=== PATIENT | male | born 1985 | race Caucasian/White ===

== ENCOUNTER 2016-06-10 12:23 | Emergency (ER) ==
[2016-06-10 12:38] VITALS: BP 162/100
--- NOTE | 2016-06-10 14:01 | PROVIDER DOCUMENTATION ---
HPI-Musculoskeletal Pain/Inj - GENERAL Source: patient - HX OF PRESENT ILLNESS-MUSKULOSKELTAL Quality of Pain: reports: aching Severity in ED: mild Onset/Duration: 3 days ago Timing: still present Any recent injury?: No Locality of Occurance: Home Similar Symptoms Previously?: Yes Recently seen or treated by another doctor?: No - TRUNK INJURY Location of Injury(s)/Pain: reports: ribs (R) Context / Method of Injury: reports: none Associated Symptoms: reports: pain with breathing. denies: anxiety, arm pain, back/neck pain, chest pain, nausea/vomiting, shortness of breath, sensory/motor loss <Tamanna Rahman - Last Filed: 06/10/16 16:22> <Sharif Sandoval - Last Filed: 06/10/16 16:27> - GENERAL Chief Complaint: Rib Pain Stated Complaint: RIB PAIN Time Seen by Provider: 06/10/16 13:54 - HX OF PRESENT ILLNESS-MUSKULOSKELTAL Nature of Presenting Problem: Pt is 31 y/o M presents to the ED with R side rib pain. Pt states pain started Monday. Pt denies N/V/D. Pt states coughed a lot prior to pain starting. Pt states hurts to breathe. (Tamanna Rahman) Review of Systems - Adult - REVIEW OF SYSTEMS - ADULT Constitutional: reports: no symptoms reported Eyes: reports: no symptoms reported Ears, Nose, Mouth & Throat: reports: no symptoms reported Cardiovascular: reports: no symptoms reported Respiratory: reports: no symptoms reported Gastrointestinal: reports: no symptoms reported Genitourinary: reports: no symptoms reported Musculoskeletal: reports: other (R side rib pain). denies: bone pain, joint pain, neck pain Integumentary: reports: no symptoms reported Neurological: reports: no symptoms reported Psychiatric: reports: no symptoms reported Endocrine: reports: no symptoms reported Hematologic/Lymphatic: reports: no symptoms reported Allergic/Immunologic: reports: no symptoms reported All Other Systems: Reviewed and Negative <Tamanna Rahman - Last Filed: 06/10/16 16:22> Past History - Adult - PAST MEDICAL HISTORY-ADULT Review of Records: reports: Nursing Assessment Review, Medications Reviewed, Social history reviewed & non-contributory. Major Childhood Illnesses: reports: denies history Cardiovascular: reports: denies history Respiratory: reports: denies history Gastrointestinal: reports: denies history Obstetrical/Gynecological: reports: denies history Genitourinary: reports: denies history Musculoskeletal: reports: denies history Neurological: reports: denies history Endocrine/Immune: reports: denies history Other Conditions: reports: denies history - PRIOR SURGERIES/PROCEDURES Surgical/Procedure History: reports: reviewed, not pertinent - IMMUNIZATION STATUS Childhood Immunizations: See Nurse Assessment Flu Vaccine: See Nurse Assessment - FAMILY HISTORY Family History: reviewed, not pertinent - SOCIAL HISTORY Smoking: cigarettes, greater than 1 pack/day Provider spent 3-5 mins advising pt. on dangers of tobacco.: Discussed manners to quit use, and f/u contacts for add'l counseling. Substance Use: denies Living Situation: family <Tamanna Rahman - Last Filed: 06/10/16 16:22> Physical Exam-Injury Related - Physical Exam-Injury Related Initial Vital Signs Reviewed: Yes General Appearance: appears well, alert, no apparent distress Eyes: PERRL/EOMI, pink conjunctivae, fundi clear, no AV nicking Head, Ears, Nose, Mouth & Throat: normocephalic/atraumatic, moist mucous membranes, normal ENT inspection, TMs normal, pharynx normal Neck: non-tender, full range of motion, supple, normal inspection Respiratory: chest non-tender, lungs clear, normal breath sounds, no pleuratic chest pain, no respiratory distress, no accessory muscle use Cardiovascular: normal peripheral pulses, regular rate, rhythm, no edema, no gallop, no JVD, no murmur Abdominal Exam: normal bowel sounds, soft, no organomegaly, no pulsatile mass, tenderness (over R ribs) Lymphatic: no adenopathy Back Exam: normal inspection, no CVA tenderness, no vertebral tenderness Extremity: normal range of motion, non-tender, normal gait, normal inspection, no pedal edema, no calf tenderness, normal capillary refill, pelvis stable Integumentary: normal color, warm/dry Neurologic: grossly normal Psych/Mental Status: normal mood/affect, oriented x 3 <Tamanna Rahman - Last Filed: 06/10/16 16:22> Progress - XRAY 1 XRAY: Bilateral XRAY Study: Chest Impression: Abnormal XRAY Interpretation: small infiltrate in the right base - CT/MRI 1 CT Study: Angiogram Impression: Abnormal CT Results: small rt effusion and patchy opacity in RLL and RML, no evidence of PE <Tamanna Rahman - Last Filed: 06/10/16 16:22> <Sharif Sandoval - Last Filed: 06/10/16 16:27> - PLAN OF CARE/RESULTS Progress/Plan/Lab Results: Orders Category Date Time Status CHEST-2 VIEWS [RAD] Stat Exams 06/10/16 13:54 Ordered CBC WITH DIFF [HEME] Stat Lab 06/10/16 13:54 Ordered Vital Signs - 24 hr 06/10/16 12:34 Temperature 97.8 F Pulse Rate 96 H Respiratory 18 Rate Blood Pressure 162/100 O2 Sat by Pulse 98 Oximetry Laboratory Tests 06/10/16 14:07 WBC 9.74 RBC 4.64 L Hgb 14.7 Hct 43.1 MCV 92.9 MCH 31.7 H MCHC 34.1 RDW Std Deviation 12.5 Plt Count 124 L MPV 13.0 H Immature Gran % (Auto) 0.2 Neut % (Auto) 65.9 Lymph % (Auto) 19.7 L Baker % (Auto) 12.4 H Eos % (Auto) 1.5 Baso % (Auto) 0.3 Immature Gran # (Auto) 0.02 Neut # (Auto) 6.41 Lymph # (Auto) 1.92 Baker # (Auto) 1.21 H Eos # (Auto) 0.15 Baso # (Auto) 0.03 Laboratory Tests 06/10/16 06/10/16 13:51 14:07 WBC 9.74 RBC 4.64 L Hgb 14.7 Hct 43.1 MCV 92.9 MCH 31.7 H MCHC 34.1 RDW Std Deviation 12.5 Plt Count 124 L MPV 13.0 H Immature Gran % (Auto) 0.2 Neut % (Auto) 65.9 Lymph % (Auto) 19.7 L Baker % (Auto) 12.4 H Eos % (Auto) 1.5 Baso % (Auto) 0.3 Immature Gran # (Auto) 0.02 Neut # (Auto) 6.41 Lymph # (Auto) 1.92 Baker # (Auto) 1.21 H Eos # (Auto) 0.15 Baso # (Auto) 0.03 D-Dimer 1.00 H Laboratory Tests 0306/10/16 06/10/16 13:51 14:07 14:07 WBC 9.74 RBC 4.64 L Hgb 14.7 Hct 43.1 MCV 92.9 MCH 31.7 H MCHC 34.1 RDW Std Deviation 12.5 Plt Count 124 L MPV 13.0 H Immature Gran % (Auto) 0.2 Neut % (Auto) 65.9 Lymph % (Auto) 19.7 L Baker % (Auto) 12.4 H Eos % (Auto) 1.5 Baso % (Auto) 0.3 Immature Gran # (Auto) 0.02 Neut # (Auto) 6.41 Lymph # (Auto) 1.92 Baker # (Auto) 1.21 H Eos # (Auto) 0.15 Baso # (Auto) 0.03 D-Dimer 1.00 H Sodium 135 L Potassium 4.3 Chloride 100 Carbon Dioxide 26 Anion Gap 10 BUN 9 Creatinine 0.6 L Estimated GFR/1.73 m2 > 60 BUN/Creatinine Ratio 15 Glucose 97 Calculated Osmolality 269 Calcium 9.5 Total Bilirubin 0.90 AST 20 ALT 20 Alkaline Phosphatase 110 Total Protein 6.7 Albumin 4.1 Globulin 3.0 Albumin/Globulin Ratio 2.0 (Tamanna Rahman) Departure <Tamanna Rahman - Last Filed: 06/10/16 16:22> - Departure Time of Disposition Order: 16:23 Certified Medical Emergency: Emergent <Sharif Sandoval - Last Filed: 06/10/16 16:27> - Departure DIAGNOSIS: Pneumonia Qualifiers: Pneumonia type: due to unspecified organism Laterality: right Lung location: lower lobe of lung Qualified Code(s): J18.1 - Lobar pneumonia, unspecified organism Disposition: HOME 01 Condition: Stable Additional Instructions: ED Follow Up Instructions: You have been treated by a care provider in the Emergency Department. These instructions are being provided to you so you can have an understanding of how to care for yourself upon discharge. Upon discharge from the Emergency Department, you are responsible for making arrangements for follow-up care by a physician of your choice. Take all prescribed medications as directed. Return to the Emergency Department immediately for any new or worsening symptoms. You may call the Physician Referral phone number at [phone] to obtain a list of Physicians who are taking new patients. Prescriptions: Guaifenesin/Codeine [Robitussin-AC] 10 ml PO Q4H PRN PRN #8 oz PRN Reason: Cough Levofloxacin [Levaquin] 500 mg PO DAILY #10 tablet Referrals: None,PCP [Primary Care Provider] - Attestation - Scribe Verification/Attestation Scribe:: Tamanna Rahman Acting as Scribe for:: Sharif Sandoval Scribe documention review:: This chart was documented by a scribe and accurately reflects the service the provider performed and the decisions made by the provider. <Tamanna Rahman - Last Filed: 06/10/16 16:22> Physician Attestation
[2016-06-10 14:10] LABS: MANUAL DIFF NEEDED? NO
[2016-06-10 14:15] LABS: BASO% 0.3 % (0.0-0.8); EOS# 0.15 X1000 (0.0-0.7); EOS% 1.5 % (0.0-10.0); HEMATOCRIT 43.1 % (42.0-52.0); HEMOGLOBIN 14.7 g/dL (14.0-18.0); IMM GRAN# 0.02 X1000 (0.0-0.04); IMM GRAN% 0.2 % (0.0-0.5); LYMPH# 1.92 X1000 (1.2-3.4); LYMPH% 19.7 % (20.5-51.1); MCH 31.7 PG (27-31); MCHC 34.1 g/dL (33-37); MCV 92.9 FL (81-99); MONO# 1.21 X1000 (0.11-0.59); MONO% 12.4 % (1.7-9.3); NEUT% 65.9 % (42.2-75.2); PLT 124 X1000 (130-400); RBC 4.64 XMIL (4.7-6.1)
--- NOTE | 2016-06-10 14:47 | Diag Imaging Result Document ---
PROCEDURE NAME: CHEST-2 VIEWS - 06/10/2016 FRONTAL AND LATERAL CHEST, 2 VIEWS. COMPARISON: No comparison films. FINDINGS: The lungs are well expanded. The heart is not enlarged. The vessels are not distended. No pleural effusions. There is a small infiltrate in the right costophrenic angle. No other abnormality. IMPRESSION: Small infiltrate in the right costophrenic angle.
[2016-06-10 15:42] LABS: AGAP 10; ALBUMIN 4.1 g/dL (3.5-5.0); ALKALINE PHOSPHATASE 110 U/L (32-122); BUN 9 mg/dL (8-22); CALCIUM 9.5 mg/dL (8.8-10.2); CHLORIDE 100 mmol/L (98-107); COSMO 269; GOT 20 U/L (10-34); GPT 20 U/L (10-44); POTASSIUM 4.3 mmol/L (3.5-5.1); SODIUM 135 mmol/L (136-145); TCO2 26 mmol/L (25-35); TOTAL PROTEIN 6.7 g/dL (6.3-8.3)
--- NOTE | 2016-06-10 18:04 | Diag Imaging Result Document ---
PROCEDURE NAME: ANGIOGRAM/PULMONARY ARTERIES - 06/10/2016 CT OF THE CHEST WITH INTRAVENOUS CONTRAST: FINDINGS: There are no previous studies. There is some motion artifact. There are no pulmonary arterial filling defects. The aorta is not distended and there is no evidence of dissection. There are some calcified nodes in the right hilum and sub chai. There is a small right pleural effusion. There is ill-defined opacity present in the lateral costophrenic sulcus portions of the right lower lobe and in the inferior and medial portions of the right middle lobe. No acute abnormalities are demonstrated in the visualized portion of the abdomen. IMPRESSION: Right pleural effusion and patchy bronchopneumonia in the right middle and lower lobes.
== END 2016-06-10 16:37 | disposition home or self-care (01) ==
LOC: P.ED 12:23
DX: J18.1 Lobar pneumonia, unspecified organism (principal); R07.81 Pleurodynia; R05 Cough; R07.1 Chest pain on breathing; F17.210 Nicotine dependence, cigarettes, uncomplicated; Z71.6 Tobacco abuse counseling
CPT/HCPCS: 71020; 71275; 80053; 85025; 85379; Q9967